=== PATIENT | male | born 1930 | race Two or more races ===

== ENCOUNTER 2017-05-20 09:48 | Day surgery (SDC) | payer OTHER ==
[~2017-05-20] VITALS: Ht 165.1 cm; Wt 35.8 kg
[~2017-05-20 09:48] MED LIST: ASPI81TA27 PO; ATEN-60 PO; DOXA1TAB42 PO; FINA5TAB4 PO; LOSA100T27 PO; ROPI1TAB22 PO; TRAM50TA2 PO
[2017-05-20] MEDS ORDERED: LIDOCAINE 2%HCL (LOCAL ANESTH.) INJ 20ML MDV ONE (11:25)
[2017-05-20] MEDS ORDERED: IOHEXOL 350 MG/ML 100ML IJ ONE (11:25)
[2017-05-20] MEDS ORDERED: ANGIOMAX 250 MG VIAL IV ONE (11:40)
[2017-05-20] MEDS ORDERED: fentaNYL CITRATE 100 MCG/2 ML VL ONE (11:41)
[2017-05-20] MEDS ORDERED: MIDAZOLAM HCL 1MG/1ML-2 ML VIAL ONE (11:41)
== END 2017-05-20 14:15 | disposition home or self-care (01) ==
LOC: CATH 09:48
PROVIDERS: ATTEND Internal Medicine Cardiovascular Disease
DX: R94.39 Abnormal result of other cardiovascular function study (principal); I10 Essential (primary) hypertension
CPT/HCPCS: 93458; C1760; C1894; J1644; J2250; J3010; J7030; Q9967; 99152; 99153